=== PATIENT | male | born 2000 | race Caucasian/White ===

== ENCOUNTER 2024-03-04 06:06 | Emergency (ER) | payer BC ==
[~2024-03-04] VITALS: Ht 172.7 cm; Wt 93.0 kg
[2024-03-04 06:21] VITALS: O2SAT 98
[2024-03-04] MEDS: FLUORESCEIN SODIUM 1MG/STRIP RIGHTEYE ONE (07:15)
[2024-03-04] MEDS ORDERED: OCUFLX RIGHTEYE (08:16)
[2024-03-04] MEDS ORDERED: NAPR-681 MT (08:16)
[2024-03-04] MEDS: TETRACAINE 0.5% OPHTH DROPS 4ML RIGHTEYE ONE (08:31)
[2024-03-04 08:38] VITALS: BP 110/77; PULSE 79; RESP 18; TEMP 98.3
== END 2024-03-04 08:42 | disposition home or self-care (01) ==
LOC: ER 06:06
DX: S00.211A Abrasion of right eyelid and periocular area, initial encounter (principal); X08.8XXA Exposure to other specified smoke, fire and flames, initial encounter; Y93.89 Activity, other specified; Y92.89 Other specified places as the place of occurrence of the external cause; Y99.8 Other external cause status
CPT/HCPCS: 99283